=== PATIENT | male | born 1990 | race African-American/Black ===

== ENCOUNTER 2020-03-20 15:15 | Outpatient (REF) | payer OTHER, SELFPAY | END 2020-03-20 15:16 | disposition home or self-care (01) | LOC: HO.LAB 15:15 | PROVIDERS: Visit Provider Internal Medicine | DX: Z20.828 Contact with and (suspected) exposure to other viral communicable diseases (principal) | CPT/HCPCS: 87635 ==

== ENCOUNTER 2023-11-01 08:28 | Emergency (ER) | payer OTHER, SELFPAY ==
--- NOTE | ~2023-11-01 | XR_ITS ---
EXAMINATION: XR SHOULDER, RIGHT CLINICAL INFORMATION: Pain and tenderness COMPARISON: None available. TECHNIQUE: AP external rotation, Grashey, scapular Y, and axillary views of the right shoulder. FINDINGS: The bones and soft tissues are normal. No fracture. Glenohumeral and acromioclavicular alignment is anatomic with normal joint space. No abnormal soft tissue calcifications. XR/XR shoulder RT min 2V IMPRESSION: Normal right shoulder.
[2023-11-01 08:42] VITALS: BP 145/85; PULSE 63; O2SAT 98
[2023-11-01 09:15] VITALS: BP 124/78; PULSE 58; RESP 16; TEMP 36.3; O2SAT 99; BMI 23.5
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
[2023-11-01] MEDS: Acetaminophen 325 MG TABLET 975 MG PO (10:16)
[2023-11-01] MEDS: Ibuprofen 600 MG TABLET PO (10:16)
[2023-11-01 11:56] VITALS: BP 118/74; PULSE 74; RESP 18; TEMP 36.6; O2SAT 94
[2023-11-01 12:01] VITALS: BP 118/74; PULSE 74; RESP 18; TEMP 36.6; O2SAT 94
== END 2023-11-01 12:02 | disposition home or self-care (01) ==
PROVIDERS: Emergency Provider Emergency Medicine
DX: S46.011A Strain of muscle(s) and tendon(s) of the rotator cuff of right shoulder, initial encounter (principal); V43.52XA Car driver injured in collision with other type car in traffic accident, initial encounter; Y93.9 Activity, unspecified; Y92.410 Unspecified street and highway as the place of occurrence of the external cause; Y99.9 Unspecified external cause status; M25.511 Pain in right shoulder
CPT/HCPCS: 73030; 99283; 99284